=== PATIENT | male | born 1955 | race Caucasian/White ===

== ENCOUNTER → 2024-10-23 10:12 | Outpatient (REF) | payer MEDICARE, OTHER, SELFPAY | LOC: HWRAD 10:12 | PROVIDERS: ATTENDING PHYSICIAN Nurse Practitioner Family; FAMILY PHYSICIAN Internal Medicine | DX: R05.9 Cough, unspecified (principal); R06.09 Other forms of dyspnea | CPT/HCPCS: 71046 ==

== ENCOUNTER → 2025-06-10 15:06 | Outpatient (REF) | payer MEDICARE, OTHER, SELFPAY | LOC: HWRAD 15:06 | PROVIDERS: ATTENDING PHYSICIAN Nurse Practitioner Family | DX: M54.12 Radiculopathy, cervical region (principal); R10.9 Unspecified abdominal pain | CPT/HCPCS: 72050; 74018 ==

== ENCOUNTER → 2025-08-01 12:01 | Outpatient (REF) | payer MEDICARE, OTHER, SELFPAY ==
[2025-08-01 16:19] LABS: Blood Urea Nitrogen 25 mg/dl (9-20); Calcium 8.7 mg/dl (8.4-10.2); Carbon Dioxide 27 mmol/L (22-30); Chloride 104 mmol/L (98-107); Glucose 87 mg/dl (70-99); Potassium 4.3 mmol/L (3.5-5.1); Sodium 139 mmol/L (135-145); eGFR > 60.00
== END ==
LOC: HWLAB 12:01
PROVIDERS: ATTENDING PHYSICIAN Nurse Practitioner Family
DX: R74.8 Abnormal levels of other serum enzymes (principal); M79.10 Myalgia, unspecified site
CPT/HCPCS: 36415; 80048; 82550